=== PATIENT | male | born 2000 | race African-American/Black ===

== ENCOUNTER 2022-09-03 22:30 | Emergency (ER) | payer OTHER ==
[~2022-09-03] VITALS: Ht 175.3 cm; Wt 109.3 kg
[2022-09-03 22:54] VITALS: O2SAT 100
[2022-09-03] MEDS ORDERED: IBUPROFEN 600 MG TAB PO STA (22:55)
[2022-09-04] MEDS ORDERED: IBUPROFEN600 MG PO (00:01)
== END 2022-09-04 00:13 | disposition home or self-care (01) ==
LOC: ER 22:35
DX: S83.004A Unspecified dislocation of right patella, initial encounter (principal); S83.8X1A Sprain of other specified parts of right knee, initial encounter; X50.1XXA Overexertion from prolonged static or awkward postures, initial encounter; Y93.89 Activity, other specified; Y92.89 Other specified places as the place of occurrence of the external cause
CPT/HCPCS: 99283